=== PATIENT | female | born 1965 | race Two or more races ===

== ENCOUNTER 2024-02-10 17:44 | Emergency (ER) | payer SELFPAY ==
[~2024-02-10] VITALS: Ht 160 cm; Wt 131.4 kg
[2024-02-10 19:26] LABS: Basophils # (auto) 0 10 ^3/uL (0-0.2); Basophils % (auto) 0.6 % (0.0-2.0); Eosinophils # (auto) 0.1 10 ^3/uL (0-0.8); Hematocrit 46.5 % (36.0-46.0); Hemoglobin 16.2 g/dL (12.2-16.2); Lymphocytes # (auto) 1.6 10 ^3/uL (0.4-5.4); Lymphocytes % (auto) 26.5 % (10.0-50.0); Mean Corpuscular Hemoglobin 32.5 pg (28.0-32.0); Mean Corpuscular Hgb Conc. 34.9 g/dL (32.0-36.0); Mean Corpuscular Volume 93.3 fL (80.0-100.0); Monocytes # (auto) 0.5 10 ^3/uL (0-1.3); Monocytes % (auto) 8.6 % (0.0-12.0); Neutrophils # (auto) 3.9 10 ^3/uL (1.6-8.6); Neutrophils % (auto) 63.3 % (37.0-80.0); Nucleated Red Blood Cells % 0.1 %; Platelet Count (auto) 336 10^3/uL (140-450); Red Blood Cells 4.99 10^6/uL (4.0-5.20); Red Cell Distribution Width 13.2 % (11.8-14.3); White Blood Cell 6.2 10^3/uL (4.4-10.8)
[2024-02-10 19:41] LABS: Albumin 4.6 g/dL (3.2-4.8); Alkaline Phosphatase 94 U/L (46-116); Anion Gap 11 (5-15); Aspartate Aminotransferase 20 U/L (13-40); BUN/Creatinine Ratio 19.8 (10.0-20.0); Blood Urea Nitrogen 18 mg/dL (9-23); Calcium 10.2 mg/dL (8.7-10.4); Carbon Dioxide 23 mmol/L (20-31); Chloride 106 mmol/L (98-107); Magnesium 2.1 mg/dL (1.6-2.6); Potassium 4.2 mmol/L (3.5-5.1); Sodium 140 mmol/L (136-145)
[2024-02-10 19:42] LABS: Bilirubin, Total 0.6 mg/dL (0.2-1.0); Total Protein 8.2 g/dL (5.7-8.2)
[2024-02-10 19:43] LABS: Alanine Aminotransferase 66 U/L (7-40); Glucose 119 mg/dL (74-106)
--- NOTE | 2024-02-10 19:47 | DVH ---
CHEST RADIOGRAPH Indication: Chest pain Technique: Single frontal view of the chest was obtained COMPARISON: None FINDINGS: Lines and Tubes: None Lungs: Clear Pleura: No effusion. No pneumothorax. Cardiomediastinal contours: Unremarkable Bones: Unremarkable IMPRESSION: 1. No acute disease.
--- NOTE | 2024-02-10 19:47 | ED.PDOC ---
HPI Comments 58-year-old female who came to ER for chest pains. Patient does have history of anxiety. States she was driving earlier when she developed substernal chest pains described as tight, 7/10 intensity, associated with upper back pain nausea. Patient took 2 tablets of 81 mg aspirin at home and decided to come to the ER. Upon arrival patient denies any more chest pains. Patient admits that she has recently stressed at work. Blood pressure upon arrival was 138/86 mm Hg. Chief Complaint: Chest Pain Time Seen by MD: 19:46 Reviewed Notes: Nurses Notes Allergies: Coded Allergies: NO KNOWN ALLERGIES (Unverified , 02/10/24) Information Source: Patient Mode of Arrival: Ambulatory Severity: Moderate Timing: Hours Duration: Since onset Prehospital treatment: None Location: Substernal Radiation: Back Quality: Tightness Onset: With Light Exertion Cardiac Risk Factors: None PE Risk Factors: None History of: None Associated Signs and Symptoms: Back Pain Review of Systems: REVIEW OF SYSTEMS: No fever, no chills, or fatigue HEENT: No sore throat, no earache, no congestion, no neck pain. Cardiac: (+) chest pain. No palpitations. Lungs: No shortness of breath, no cough. GI: No nausea, no vomiting, no diarrhea, no constipation, no abdominal pain : No dysuria, frequency, or urgency. No hematuria. Musculoskeletal: No joint pain , no joint swelling, no extremity edema (+) back pain Skin: No rash, no itching. Neuro: No headache, no dizziness, no weakness (+) anxiety Vital Signs Vital Signs Date Time Temp Pulse Resp B/P (MAP) Pulse Ox O2 Delivery O2 Flow Rate FiO2 02/10/24 23:20 98.0 101 18 138/96 (110) 97 98.0 Physical Exam General: Awake, alert and oriented. No acute distress. Skin: Skin in warm, dry and intact. Appropriate color for ethnicity. Nailbeds pink with no cyanosis. HEENT: The head is normocephalic and atraumatic. Conjunctivae are clear without exudates or hemorrhage. Sclera is non-icteric. EOM are intact. No signs of nystagmus. Eyelids are normal in appearance without swelling or lesions. Oral mucosa is pink and moist Neck: The neck is supple with normal range of motion. No JVD. Cardiac: Heart rate and rhythm are normal. No murmurs, gallops, or rubs are auscultated. Respiratory: No signs of respiratory distress. Lung sounds are clear in all lobes bilaterally without rales, ronchi, or wheezes. Abdominal: Abdomen is soft, non-tender without distention. Bowel sounds are present and normoactive in all four quadrants. Extremities: Upper and lower extremities are atraumatic in appearance without deformity or edema. Neurological: The patient is awake, alert and oriented to person, place, and time with normal speech. Speech is clear. There is no facial asymmetry. Psychiatric: Appropriate mood and affect. Good judgement and insight. No visual or auditory hallucinations. Past Medical History PAST MEDICAL HISTORY: Anxiety Surgical History: Denies all surgeries [employer]ACH[employer] History: Denies all [employer] Hx Family History Family History: Reviewed,noncontributory to illness Social History Smoker: Non-Smoker Alcohol: Denies ETOH Use Drugs: Denies Drug Use Lives In: Home EKG EKG : Comments Rate 108, sinus tachycardia, no ST elevations. No STEMI. QTC 449. QRS axis - 18. Was a procedure done? Was a procedure done?: No CP Differential Dx Differential Diagnosis: Angina, Anxiety / Panic Attack Differential Diagnosis: Angina, Chest Wall Pain, Costochondritis, Esophageal reflux/spasm, Gastritis, Myocardial Infarction Comment Differential diagnoses considered include acute ischemic coronary syndrome, aortic dissection, cardiac tamponade, mediastinitis, pulmonary embolus, pneumothorax, tension pneumothorax, esophageal rupture, coronary artery vasospasm, myocarditis, pericarditis, pneumonia, pulmonary edema, esophageal tear, pancreatitis, aortic stenosis, dilated cardiomyopathy, hypertrophic cardiomyopathy, mitral valve prolapse, malignancy, pleuritis, pneumomediastinum, primary pulmonary hypertension, cholecystitis, esophageal spasm, esophagus, gastritis, GERD, peptic ulcer disease, costochondritis, fibromyalgia, rib fracture, herpes zoster, radicular syndromes, thoracic outlet syndrome, somatization. X-Ray, Labs, Meds, VS Vital Signs Date Time Temp Pulse Resp B/P (MAP) Pulse Ox O2 Delivery O2 Flow Rate FiO2 02/10/24 23:20 98.0 101 18 138/96 (110) 97 98.0 02/10/24 18:04 98.2 107 16 138/86 (103) 97 02/10/24 17:48 108 Lab Test 02/10/24 20:57 02/10/24 20:56 02/10/24 18:41 02/10/24 17:50 Range/Units Troponin I High Sensitivity < 3 L < 3 L < 3 L </=34 ng/L Urine Color Yellow Yellow Urine Clarity Ex.turbid Clear Urine pH 6.0 5.0-9.0 Urine Specific [place] 1.047 H 1.001-1.035 Urine Protein 2+ H Negative Urine Ketones Trace Negative Urine Blood Negative Negative /uL Urine Nitrite Negative Negative Urine Bilirubin Negative Negative Urine Urobilinogen 2 H Negative mg/dL Urine Leukocyte Esterase 1+ Negative /uL Urine RBC 1 0 - 4 /hpf Urine WBC 40 0 - 5 /hpf Urine Squamous Epithelial Cells Many <5 /hpf Urine Bacteria Mod H None Seen /hpf Urine Mucus Few None Seen Urine Glucose Normal Normal mg/dL White Blood Count 6.2 4.4-10.8 10^3/uL Red Blood Count 4.99 4.0-5.20 10^6/uL Hemoglobin 16.2 12.2-16.2 g/dL Hematocrit 46.5 H 36.0-46.0 % Mean Corpuscular Volume 93.3 80.0-100.0 fL Mean Corpuscular Hemoglobin 32.5 H 28.0-32.0 pg Mean Corpuscular Hemoglobin Concent 34.9 32.0-36.0 g/dL Red Cell Distribution Width 13.2 11.8-14.3 % Platelet Count 336 140-450 10^3/uL Mean Platelet Volume 7.9 6.9-10.8 fL Neutrophils (%) (Auto) 63.3 37.0-80.0 % Lymphocytes (%) (Auto) 26.5 10.0-50.0 % Monocytes (%) (Auto) 8.6 0.0-12.0 % Eosinophils (%) (Auto) 1.0 0.0-7.0 % Basophils (%) (Auto) 0.6 0.0-2.0 % Neutrophils # (Auto) 3.9 1.6-8.6 10 ^3/uL Lymphocytes # (Auto) 1.6 0.4-5.4 10 ^3/uL Monocytes # (Auto) 0.5 0-1.3 10 ^3/uL Eosinophils # (Auto) 0.1 0-0.8 10 ^3/uL Basophils # (Auto) 0 0-0.2 10 ^3/uL Nucleated Red Blood Cells 0.1 % Sodium Level 140 136-145 mmol/L Potassium Level 4.2 3.5-5.1 mmol/L Chloride Level 106 98-107 mmol/L Carbon Dioxide Level 23 20-31 mmol/L Anion Gap 11 5-15 Blood Urea Nitrogen 18 9-23 mg/dL Creatinine 0.91 0.550-1.02 mg/dL Glomerular Filtration Rate Calc 74 >90 mL/min BUN/Creatinine Ratio 19.8 10.0-20.0 Serum Glucose 119 H 74-106 mg/dL Calcium Level 10.2 8.7-10.4 mg/dL Magnesium Level 2.1 1.6-2.6 mg/dL Total Bilirubin 0.6 0.2-1.0 mg/dL Aspartate Amino Transferase (AST) 20 13-40 U/L Alanine Aminotransferase (ALT) 66 H 7-40 U/L Alkaline Phosphatase 94 46-116 U/L Total Protein 8.2 5.7-8.2 g/dL Albumin 4.6 3.2-4.8 g/dL Thyroid Stimulating Hormone (TSH) 1.72 0.55-4.78 uIU/mL Time of 1ST Reevaluation: 19:44 Reevaluation 1ST: Unchanged Patient Education/Counseling: Diagnosis, Treatment Family Education/Counseling: No Family Present Additional Information (Due to unavailability of open ER rooms/beds, the patient was seen and examined in the ER hallway in order to expedite care. The patient was offered the option to wait for a private ER room/bed to become available but opted to proceed with the hallway examination. ) Departure 1 Departure Time of Disposition: 21:13 Impression: Primary Impression: Chest pain Additional Impression: Elevated ALT measurement Disposition: 01 HOME / SELF CARE / HOMELESS Condition: Stable Additional Instructions: ED DISCHARGE INSTRUCTIONS Instructions: Please read all instructions provided in this packet carefully. Although you have been discharged from the Emergency Department, this does not mean that you have a "clean bill of health". No definitive diagnosis for your symptoms has been made today. It is possible that you are in the process of developing a serious illness. This is why you must return to the ED without fail if any new or worsening symptoms (especially if your symptoms include chest pain, trouble breathing, abdominal pain, fever, headache, confusion, trouble seeing, or trouble walking) It is also very important that you see a primary care doctor within the next 3-5 days to follow up. Call to schedule an appointment with a new primary care provider if you are unable to find one. [phone] Dr[address] Chau Pollock or Dr. Chicho Holcomb If you are unable to get an appointment, return to the ED for re-evaluation. CHEST PAIN EDUCATION There are many things that can cause chest pain. Some are not serious and will get better on their own in a few days. But some kinds of chest pain need more t esting and treatment. Your doctor may have recommended a follow-up visit in the next few days. If you are not getting better, you may need more tests or treatment. Even though your doctor has released you, you still need to watch for any problems. The doctor carefully checked you, but sometimes problems can develop later. If you have new symptoms or if your symptoms do not get better, get medical care right away. If you have worse or different chest pain or pressure that lasts more than 5 minutes or you passed out (lost consciousness), call 911 or seek other emergency help right away. A medical visit is only one step in your treatment. Even if you feel better, you still need to do what your doctor recommends, such as going to all suggested follow-up appointments and taking medicines exactly as directed. This will help you recover and help prevent future problems. How can you care for yourself at home? Rest until you feel better. Take your medicine exactly as prescribed. Call your doctor if you think you are having a problem with your medicine. Do not drive after taking a prescription pain medicine. When should you call for help? Call 911 if: You passed out (lost consciousness). You have severe difficulty breathing. You have symptoms of a heart attack. These may include: Chest pain or pressure, or a strange feeling in your chest. Sweating. Shortness of breath. Nausea or vomiting. Pain, pressure, or a strange feeling in your back, neck, jaw, or upper belly or in one or both shoulders or arms. Lightheadedness or sudden weakness. A fast or irregular heartbeat. After you call 911, the croze machine operator may tell you to chew 1 adult-strength or 2 to 4 low-dose aspirin. Wait for an ambulance. Do not try to drive yourself. Call your doctor now or seek immediate medical care if: You have any trouble breathing. You have new or different chest pain. You are dizzy or lightheaded, or you feel like you may faint. Watch closely for changes in your health, and be sure to contact your doctor if you do not get better as expected. Current as of: October 06, 2023 Author: Advanovachin Octapoly Staff? LIVER FUNCTION TESTS EDUCATION: What does it mean to have elevated liver enzymes? If you have high levels of liver enzymes in your blood, you have elevated liver enzymes. High liver enzyme levels may be temporary, or they may be a sign of a medical condition like hepatitis or liver disease. Certain medications can also cause elevated liver enzymes. What are liver enzymes? Liver enzymes are proteins that speed up chemical reactions in your body. These chemical reactions include producing bile and substances that help your blood clot, breaking down food and toxins, and fighting infection. Common liver enzymes include: Alkaline phosphatase (ALP). Alanine transaminase (ALT). Aspartate transaminase (AST). Gamma-glutamyl transferase (GGT). If your liver is injured, it releases enzymes into your bloodstream (most commonly ALT or AST). Why does a healthcare provider check liver enzymes? Your healthcare provider may check your liver enzyme levels with a liver function test (LFT) or liver panel. A liver function test is a type of blood test. Your provider may order an LFT during a regular checkup if youre at risk for liver injury or disease or if you have symptoms of liver damage. Possible Causes What causes elevated liver enzymes? Liver diseases, medical conditions, medications and infections can cause elevated liver enzymes. What are the risk factors for elevated liver enzymes? Factors that put you at risk for elevated liver enzymes include: Alcohol use. Certain medications, herbs and vitamin supplements. Diabetes. Family history of liver disease. Hepatitis or exposure to hepatitis. What are the symptoms of elevated liver enzymes? Most people with elevated liver enzymes dont have symptoms. If liver damage is the cause of elevated liver enzymes, you may have symptoms such as: Abdominal (stomach) pain. Dark urine (pee). Fatigue (feeling tired). Itching. Jaundice (yellowing of your skin or eyes). Light-colored stools (poop). Loss of appetite. Nausea and vomiting. Care and Treatment Elevated liver enzymes have a variety of causes, including liver disease and medication. Elevated liver enzymes may also be temporary. If your blood test shows high levels of liver enzymes, talk with your provider. Theyll work to figure out the cause. (From [facility]) Comments [age] yo female with anxiety associated with chest tightness and upper back pain. EKG negative for signs of ischemia. High sensitivity troponin negative. CXR shows no acute process. Patient noted to be mildly tachycardic however she does report feeling anxious. She is not symptomatic. Other vital signs within normal limits. Patient reports upper back pain and chest tightness have resolved during the ED observation. Presentation not suggestive of acute coronary syndrome, pulmonary embolism or aortic dissection. Patient improved at time of discharge. No hypoxia, respiratory distress or dyspnea at discharge. Patient able to ambulate without difficulty. Patient well-appearing, nontoxic. Advised prompt follow-up with PCP, return to the ED with any new, worsening or concerning symptoms. Extensive evaluation was performed to identify or rule out: Acute coronary syndrome, pulmonary embolism, aortic dissection, pneumothorax, pneumonia The following tests were ordered, and results were reviewed by me: (See diagnostic results section) The following test were independently interpreted by me: Chest x-ray-no acute disease, EKG I reviewed and agreed with the following test results read by other providers: Chest x-ray I reviewed the following notes from the pt's past medical encounters: (None available at this time) Additional information was gathered from interviewing the following independent historians: N/A Discussion of management or test interpretation with external physician/other qualified health healthcare economics consultant: N/A Diagnosis or treatment significantly limited by social determinants of health: No current PCP Decision regarding hospitalization or escalation of hospital level of care: Risks and benefits of admission for further treatment of patient's condition was considered however due to patient's stable condition patient will be discharged to follow up closely or return to care for worsening of condition or inability to follow up. Critical Care Note Critical Care Time?: No Stability Stability form required: No Heart Score Heart Score: Heart Score Response (Comments) Value History Slightly Suspicious 0 EKG Normal 0 Age 45-64 1 Risk Factors No known risk factors 0 Troponin Normal limit 0 Total 1 I personally scribed for VERONICA JARRETT MD ([email or web address]) on 02/10/24 at 19:47. Electronically submitted by Kg Chen ([facility]). VERONICA JARRETT MD Feb 10, 2024 19:47
[2024-02-10 21:17] LABS: Urine Bacteria MOD /hpf (None Seen); Urine Blood Negative /uL (Negative); Urine Clarity Ex.Turbid (Clear); Urine Color Yellow (Yellow); Urine Mucus FEW (None Seen); Urine Protein, UAD 2+ (Negative); Urine Specific Gravity 1.047 (1.001-1.035); Urine Urobilinogen 2 mg/dL (Negative); Urine WBC 40 /hpf (0 - 5)
[2024-02-10 23:20] VITALS: BP 138/96; PULSE 101; RESP 18; TEMP 98; O2SAT 97
--- NOTE | 2024-02-11 12:39 | ECG ---
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
== END 2024-02-10 23:29 | disposition home or self-care (01) ==
LOC: ER 17:44
DX: R74.01 Elevation of levels of liver transaminase levels (principal); R07.89 Other chest pain; M54.6 Pain in thoracic spine; F41.9 Anxiety disorder, unspecified; Z79.899 Other long term (current) drug therapy
CPT/HCPCS: 36415; 71045; 80053; 81001; 83735; 84443; 84484; 85025; 93005